=== PATIENT | female | born 1960 | race African-American/Black ===

== ENCOUNTER → 2018-04-03 14:56 | Outpatient (CLI) | payer OTHER, SELFPAY | PROVIDERS: Visit Provider Physician Assistant | DX: J02.9 Acute pharyngitis, unspecified (principal) | CPT/HCPCS: 87070 ==

== ENCOUNTER 2021-10-19 15:20 | Emergency (ER) | payer OTHER, SELFPAY ==
[2021-10-19 15:25] VITALS: BP 161/86; PULSE 59; RESP 18; TEMP 36.7; O2SAT 97
--- NOTE | 2021-10-19 15:31 | DI.RAD.S_ITS ---
PROCEDURE: XR CHEST 1V INDICATIONS: chest pain TECHNIQUE: One view of the chest was acquired. COMPARISON: [facility], CR, XR CHEST 2 VIEWS, 07/03/2019, 14:28. [facility], CR, CHEST 1 VIEW, 11/08/2016, 20:28. [facility], CR, CHEST 2 VIEW, 09/02/2017, 14:52. FINDINGS: Surgical changes and devices: None. Lungs and pleura: Lungs are clear. No pleural effusions or pneumothorax. Mediastinum: Mediastinal contours appear normal. Heart size is normal. Bones and chest wall: No suspicious bony lesions. Overlying soft tissues appear unremarkable. IMPRESSION: Portable chest within normal limits. Dictated by: Augustin Velasco M.D. on 10/19/2021 at 15:10 Approved by: Augustin Velasco M.D. on 10/19/2021 at 15:10
--- NOTE | 2021-10-19 15:51 | PC.NURSE ---
pt refused PIV. This Rn sanjay blood and removed the IV. pt states understanding there may need to be additional blood draws and a new IV placed. Provider notified
[2021-10-19 15:55] LABS: Add Manual Diff / Slide Review NO; Basophils Absolute Auto 0 /uL (0-100); Basophils Percent Auto 0.5 % (0-2); Eosinophils Absolute Auto 100 /uL (0-450); Eosinophils Percent Auto 1.9 % (2-4); Hematocrit 40.8 % (36-46); Hemoglobin 13.6 g/dL (12.0-16.0); Lymphocytes Absolute Auto 1400 /uL (1100-4500); Lymphocytes Percent Auto 19.6 % (25-40); Mean Corpuscular HGB Conc 33.4 % (30-36); Mean Corpuscular Hemoglobin 27.8 PG (26-34); Mean Corpuscular Volume 83.1 fL (80-100); Monocytes Absolute Auto 900 /uL (0-900); Monocytes Percent Auto 11.8 % (3-14); Neutrophils Absolute Auto 4800 /uL (1500-7000); Neutrophils Percent Auto 66.2 % (50-75); Platelet Count 233 X10^3/uL (150-400); Red Blood Cell Count 4.91 X10^6/uL (4.0-5.2); Red Cell Distribution Width 14.8 % (11.6-14.8); White Blood Cell Count 7.2 X10^3/uL (4.5-11.0)
[2021-10-19 16:01] LABS: Alanine Aminotransferase 14 IU/L (<35); Albumin 4.4 g/dL (3.5-5.0); Albumin Globulin Ratio 1.4 (1.0-2.8); Alkaline Phosphatase 61 U/L (38-126); Aspartate Aminotransferase 22 IU/L (14-36); Bilirubin Total 0.2 mg/dL (0.2-1.3); Blood Urea Nitrogen 23 mg/dL (7-17); Calcium 9.3 mg/dL (8.4-10.2); Carbon Dioxide 30 mmol/L (22-32); Chloride 106 mmol/L (98-107); Creatine Kinase 52 U/L (30-135); Estimated Glomerular Filt Rate > 60 mL/min (>60); Globulin 3.1 g/dL (1.7-4.1); Glucose 118 mg/dL (80-110); HEMOLYSIS < 15 (0-50); Lipase 114 U/L (23-300); Potassium 3.9 mmol/L (3.4-5.1); Sodium 142 mmol/L (137-145); Total Protein 7.5 g/dL (6.3-8.2)
[2021-10-19 16:13] LABS: Troponin I < 0.012 ng/mL (0.01-0.034)
--- NOTE | 2021-10-19 17:04 | ED.CHESTPAIN ---
HPI - Chest Pain General Chief Complaint: Chest Pain Stated Complaint: Sent for imaging, coughing Time Seen by Provider: 10/19/21 16:20 Source: patient Mode of arrival: Ambulatory Limitations: no limitations History of Present Illness HPI narrative: The patient has a history of a spontaneous pneumothorax in the , resolved without intervention. She presents with right anterior chest pain, similar to the discomfort she experienced with the pneumothorax. She has allergies. She is on no medications. She was aggressively clear her sinuses and coughing when the pain started. She has no chronic cough, no chronic lung disease. She is a nonsmoker. She has no asthma. She is rating chest pain without dyspnea. She has no hemoptysis. She has no history of cardiac disease. She has no fever chills or acute illness. She has no abdominal discomfort, no peripheral edema. Related Data Home Medications Medication Instructions Recorded Confirmed aspirin [[place] Aspirin] PO 11/29/18 11/29/18 cholecalciferol (vitamin D3) 25 1,000 unit PO DAILY 11/29/18 11/29/18 mcg (1,000 unit) capsule clotrimazole 1 % topical cream 1 applictn TOP BID PRN 11/29/18 11/29/18 diphenhydramine HCl [Benadryl PO PRN 11/29/18 11/29/18 Allergy] fluticasone propionate 50 1 spray NASAL DAILY PRN 11/29/18 11/29/18 mcg/actuation nasal spray,suspension hydrocortisone 1 % topical cream 1 applictn TOP BID PRN 11/29/18 11/29/18 (Anti-Itch (hydrocortisone)) ibuprofen 100 mg tablet (Advil) 200 mg PO QID PRN 11/29/18 11/29/18 oxymetazoline 0.05 % nasal spray 2 spray NASAL Q12H PRN 11/29/18 11/29/18 (Afrin (oxymetazoline)) pseudoephedrine HCl [Sudafed] PO PRN 11/29/18 11/29/18 triamcinolone acetonide 0.1 % 1 applictn TOP DAILY PRN 11/29/18 11/29/18 topical cream Previous Rx's Medication Instructions Recorded estradiol 0.5 mg tablet 0.5 mg PO DAILY #90 tab 01/26/19 progesterone micronized 100 mg 100 mg PO QAM 30 Days #90 cap 01/26/19 capsule (Prometrium) estradiol (Estrace) 0.3 gram VAG 2XW #42.5 gram 03/21/20 Allergies Allergy/AdvReac Type Severity Reaction Status Date / Time erythromycin base Allergy Unknown Verified 04/03/18 13:47 [ERYTHROMYCIN BASE] Review of Systems Review of Systems ROS Unobtainable: All systems reviewed & are unremarkable except as noted in HPI and below Patient History Medical History Chicken pox Hearing loss (~2018) Hematuria (~1977) Mumps Osteoarthritis (~2018) Pneumothorax (~1990) Shoulder problem (~2016) Vaginal atrophy (~2007) Surgical History Anesthesia History of section (~1994) History of tonsillectomy (~1965) S/P operative procedure on shoulder Family History Father Cancer Hypertension Mother Multiple myeloma Cancer Hypertension Kidney stones Brother Hypertension Sleep apnea Family/Other Mental health problem Bipolar disorder Anxiety Social History Smoking Status: Never smoker Smoking Status: Never smoker Exam Initial Vital Signs Initial Vital Signs: Vital Signs Temperature 98.1 F 10/19/21 15:25 Pulse Rate 59 L 10/19/21 15:25 Respiratory Rate 18 10/19/21 15:25 Blood Pressure 161/86 H 10/19/21 15:25 Pulse Oximetry 97 10/19/21 15:25 Const General: cooperative, healthy appearing and comfortable [facility] Head: normocephalic and atraumatic Face and sinus: normal facial exam and sinuses nontender Mouth: oropharynx normal Eyes General: Yes appearance normal, both eyes and all related structures Pupils: PERRL EOM: EOM intact bilaterally Neck Neck: supple, No tender and No JVD Chest Other: Reproducible tenderness in the right upper chest wall. No crepitus. No palpable deformity. Resp Auscultation: clear to auscultation bilaterally Cardio Rate: regular rate Rhythm: regular rhythm Heart Sounds: S1 normal, S2 normal, no click, no gallops and no murmurs GI Inspection: normal to inspection and non-distended Palpation: soft, No guarding and No mass Auscultation: normal bowel sounds Back/Spine/Pelvis Back: normal to inspection Skin General: no rashes or lesions noted Neuro General: patient alert, patient awake, patient oriented x3, no meningeal signs and no focal motor deficits Extrem General: normal to inspection, no pedal edema and no calf tenderness Psych Mental Status: mental status grossly normal Course Course Course Narrative: Cardiopulmonary evaluation is benign. EKG is normal. Chest x-ray is normal. Cardiac enzymes are normal. Exam is suggestive of a right chest wall strain, probably related to coughing and her allergies. Orders Ordered: ED Orders 10/19/21 15:31 XR chest 1V Stat Complete Blood Count AUTO DIFF Stat Comprehensive Metabolic Panel Stat Lipase Stat Magnesium Stat Troponin & CK Cardiac Panel Stat EKG-12 Lead Stat Vital Signs Vital signs: Vital Signs - 8 hr 10/19/21 15:25 Temperature 98.1 F Pulse Rate 59 L Respiratory Rate 18 Blood Pressure 161/86 H Pulse Oximetry 97 MDM - Chest Pain Lab Data Result diagrams: 10/19/21 15:31 10/19/21 15:31 Labs: Lab Results 10/19/21 10/19/21 Range/Units 15:31 15:31 WBC 7.2 (4.5-11.0) X10^3/uL RBC 4.91 (4.0-5.2) X10^6/uL Hgb 13.6 (12.0-16.0) g/dL Hct 40.8 (36-46) % MCV 83.1 (80-100) fL MCH 27.8 (26-34) PG MCHC 33.4 (30-36) % RDW 14.8 (11.6-14.8) % Plt Count 233 (150-400) X10^3/uL Neut % (Auto) 66.2 (50-75) % Lymph % (Auto) 19.6 L (25-40) % [place] % (Auto) 11.8 (3-14) % Eos % (Auto) 1.9 L (2-4) % Baso % (Auto) 0.5 (0-2) % Neut # (Auto) 4800 (8079-7092) /uL Lymph # (Auto) 1400 (2943-4002) /uL [place] # (Auto) 900 (0-900) /uL Eos # (Auto) 100 (0-450) /uL Baso # (Auto) 0 (0-100) /uL Sodium 142 (137-145) mmol/L Potassium 3.9 (3.4-5.1) mmol/L Chloride 106 (98-107) mmol/L Carbon Dioxide 30 (22-32) mmol/L BUN 23 H (7-17) mg/dL Creatinine 0.82 (0.52-1.04) mg/dL Estimated GFR > 60 (>60) mL/min BUN/Creatinine Ratio 28.0 H (6-22) Glucose 118 H (80-110) mg/dL Calcium 9.3 (8.4-10.2) mg/dL Magnesium 2.0 (1.6-2.3) mg/dL Total Bilirubin 0.2 (0.2-1.3) mg/dL AST 22 (14-36) IU/L ALT 14 (<35) IU/L Alkaline Phosphatase 61 (38-126) U/L Total Creatine Kinase 52 (30-135) U/L CK-MB (CK-2) TNP CK-MB (CK-2) Rel Index TNP Troponin I < 0.012 (0.01-0.034) ng/mL Total Protein 7.5 (6.3-8.2) g/dL Albumin 4.4 (3.5-5.0) g/dL Globulin 3.1 (1.7-4.1) g/dL Albumin/Globulin Ratio 1.4 (1.0-2.8) Lipase 114 (23-300) U/L Imaging Data Chest x-ray: Radiologist's Impression: Normal ECG Data Attestation: I personally reviewed and interpreted this ECG as follows: (Normal sinus rhythm rate 61 beats per minute. Normal intervals. No ectopy. No acute ST T wave changes.) Discharge Plan Departure Patient Disposition: Home Clinical Impression: Chest wall muscle strain Instructions: Muscle Strain Activity Restrictions/Additional Instructions: There is no evidence of pneumothorax. Tylenol or Advil as needed for pain. Do your best to avoid coughing. Return here as needed. Prescriptions: No Action progesterone micronized [Prometrium] 100 mg capsule 100 mg PO QAM 30 Days Qty: 90 1RF Hold Instructions: Pt wants to stop HRT Rx Instructions: Take 1 capsule by mouth daily for 30 days, off for 7 days; repeat cycle. estradiol 0.5 mg tablet 0.5 mg PO DAILY Qty: 90 1RF Hold Instructions: pt. wants to stop HRT as of 04/18/19 estradiol [Estrace] 0.01 % (0.1 mg/gram) cream 0.3 gram VAG 2XW Qty: 42.5 0RF Hold Instructions: Pt wants to stop HRT Rx Instructions: Place small amount at the vaginal opening 2 x weekly; call and schedule appointment before next refill aspirin PO 0RF oxymetazoline [Afrin (oxymetazoline)] 0.05 % spray,non-aerosol 2 spray NASAL Q12H PRN0RF ibuprofen [Advil] 100 mg tablet 200 mg PO QID PRN0RF fluticasone propionate 50 mcg/actuation spray,suspension 1 spray NASAL DAILY PRN0RF clotrimazole 1 % cream 1 applictn TOP BID PRN0RF triamcinolone acetonide 0.1 % cream 1 applictn TOP DAILY PRN0RF hydrocortisone [Anti-Itch (HC)] 1 % cream 1 applictn TOP BID PRN0RF cholecalciferol (vitamin D3) 1,000 unit capsule 1,000 unit PO DAILY 0RF pseudoephedrine HCl PO PRN0RF diphenhydramine HCl PO PRN0RF Referrals: Miscellaneous,Doctor, MD [Primary Care Provider] -
--- NOTE | 2021-10-19 17:34 | PC.NURSE ---
pt declines discharge information packet. verbal instructions provided by RN
== END 2021-10-19 17:35 | disposition home or self-care (01) ==
PROVIDERS: Emergency Provider Emergency Medicine
DX: S29.011A Strain of muscle and tendon of front wall of thorax, initial encounter (principal)
CPT/HCPCS: 36415; 71045; 80053; 82550; 83690; 83735; 84484; 85025; 93005; 99283

== ENCOUNTER 2023-01-25 17:19 | Emergency (ER) | payer OTHER, SELFPAY ==
[2023-01-25 17:36] VITALS: BP 152/86; PULSE 64; RESP 17; TEMP 36.6; O2SAT 98; BMI 18.0
--- NOTE | 2023-01-25 17:43 | DI.RAD.S_ITS ---
PROCEDURE: XR CHEST 1V INDICATIONS: pain with breaths TECHNIQUE: One view of the chest was acquired. COMPARISON: [facility], CR, XR CHEST 2 VIEWS, 07/03/2019, 14:28. [facility], CR, XR CHEST 1V, 10/19/2021, 15:43. FINDINGS: Surgical changes and devices: None. Lungs and pleura: Lungs are clear. No pleural effusions or pneumothorax. Mediastinum: Mediastinal contours appear normal. Heart size is normal. Bones and chest wall: No suspicious bony lesions. Age-appropriate bony degenerative changes are seen. Overlying soft tissues appear unremarkable. IMPRESSION: Normal portable chest, without infiltrates or pneumothorax. Dictated by: Augustin Velasco M.D. on 01/25/2023 at 17:08 Approved by: Augustin Velasco M.D. on 01/25/2023 at 17:09
[2023-01-25 18:01] LABS: Add Manual Diff / Slide Review NO; Basophils Absolute Auto 0 /uL (0-100); Basophils Percent Auto 0.7 % (0-2); Eosinophils Absolute Auto 200 /uL (0-450); Eosinophils Percent Auto 2.5 % (2-4); Hematocrit 42.3 % (36-46); Hemoglobin 14.3 g/dL (12.0-16.0); Lymphocytes Absolute Auto 1500 /uL (1100-4500); Lymphocytes Percent Auto 23.1 % (25-40); Mean Corpuscular HGB Conc 33.7 % (30-36); Mean Corpuscular Hemoglobin 27.9 PG (26-34); Mean Corpuscular Volume 82.8 fL (80-100); Monocytes Absolute Auto 800 /uL (0-900); Monocytes Percent Auto 12.4 % (3-14); Neutrophils Absolute Auto 3900 /uL (1500-7000); Neutrophils Percent Auto 61.3 % (50-75); Platelet Count 247 X10^3/uL (150-400); Red Blood Cell Count 5.11 X10^6/uL (4.0-5.2); Red Cell Distribution Width 14.5 % (11.6-14.8); White Blood Cell Count 6.4 X10^3/uL (4.5-11.0)
[2023-01-25 18:11] LABS: Creatine Kinase 42 U/L (30-135)
[2023-01-25 18:13] LABS: Alanine Aminotransferase 20 IU/L (<35); Albumin 4.4 g/dL (3.5-5.0); Albumin Globulin Ratio 1.4 (1.0-2.8); Alkaline Phosphatase 65 U/L (38-126); Aspartate Aminotransferase 25 IU/L (14-36); BUN Creatinine Ratio 24.4 (6-22); Bilirubin Total 0.5 mg/dL (0.2-1.3); Blood Urea Nitrogen 19 mg/dL (7-17); Calcium 9.5 mg/dL (8.4-10.2); Carbon Dioxide 30 mmol/L (22-32); Chloride 102 mmol/L (98-107); Estimated Glomerular Filt Rate > 60 mL/min (>60); Globulin 3.2 g/dL (1.7-4.1); Glucose 134 mg/dL (80-110); HEMOLYSIS 20 (0-50); Lipase 162 U/L (23-300); Potassium 3.5 mmol/L (3.4-5.1); Sodium 139 mmol/L (137-145); Total Protein 7.6 g/dL (6.3-8.2)
[2023-01-25 18:24] LABS: Troponin I < 0.012 ng/mL (0.01-0.034)
--- NOTE | 2023-01-25 20:32 | ED.ABDPAIN ---
HPI - Abdominal Pain General Chief Complaint: Abdominal Pain Stated Complaint: gastrointestinal issues/pain under ribcage Time Seen by Provider: 01/25/23 20:32 Source: patient Mode of arrival: Ambulatory History of Present Illness HPI narrative: Patient 62-year-old female presents today with left-sided upper quadrant pain. She reports it goes underneath her ribs it has been ongoing for a number of weeks. She reports that every time she eats or drinks the pain gets worse. She is able to stick her fingers of under her ribs and palpated and make it worse as well. It is not any worse today but she is going on a trip next week and wanted to get checked. She denies any chest pain or shortness of breath no palpitations. Denies any fever or chills no nausea or vomiting. She is actually supposed to see a GI doctor in a couple weeks for another problem. She reports that when she bends down she feels like the bile goes up into her chest. She has been taking Tums without significant relief. Related Data Home Medications Medication Instructions Recorded Confirmed cholecalciferol (vitamin D3) 25 1,000 unit PO DAILY 11/29/18 01/25/23 mcg (1,000 unit) capsule fluticasone propionate 50 1 spray intranasal DAILY PRN 11/29/18 11/29/18 mcg/actuation nasal spray,suspension hydrocortisone 1 % topical cream 1 applictn topical BID PRN 11/29/18 11/29/18 (Anti-Itch (hydrocortisone)) ibuprofen 100 mg tablet (Advil) 200 mg PO QID PRN 11/29/18 11/29/18 oxymetazoline 0.05 % nasal spray 2 spray intranasal Q12H PRN 11/29/18 11/29/18 (Afrin (oxymetazoline)) pseudoephedrine HCl [Sudafed] PO PRN 11/29/18 11/29/18 triamcinolone acetonide 0.1 % 1 applictn topical DAILY PRN 11/29/18 11/29/18 topical cream Previous Rx's Medication Instructions Recorded estradiol 0.5 mg tablet 0.5 mg PO DAILY #90 tabs 01/26/19 progesterone micronized 100 mg 100 mg PO QAM 30 days #90 caps 01/26/19 capsule (Prometrium) estradiol 0.01% (0.1 mg/gram) 0.3 gram vaginal 2XW #42.5 grams 03/21/20 vaginal cream (Estrace) omeprazole 20 mg capsule,delayed 20 mg PO DAILY #30 caps 01/25/23 release Allergies Allergy/AdvReac Type Severity Reaction Status Date / Time erythromycin base Allergy Unknown Verified 01/25/23 17:39 [ERYTHROMYCIN BASE] Review of Systems Review of Systems ROS Unobtainable: All systems reviewed & are unremarkable except as noted in HPI and below Patient History Medical History Chicken pox Hearing loss (~2018) Hematuria (~1977) Mumps Osteoarthritis (~2018) Pneumothorax (~1990) Shoulder problem (~2016) Vaginal atrophy (~2007) Surgical History Anesthesia History of section (~1994) History of tonsillectomy (~1965) S/P operative procedure on shoulder Family History Father Cancer Hypertension Mother Multiple myeloma Cancer Hypertension Kidney stones Brother Hypertension Sleep apnea Family/Other Mental health problem Bipolar disorder Anxiety Social History Smoking Status: Never smoker Smoking Status: Never smoker alcohol intake frequency: other Substance Use Type: does not use Exam Initial Vital Signs Initial Vital Signs: Vital Signs Temperature 98 F 01/25/23 17:36 Pulse Rate 64 01/25/23 17:36 Respiratory Rate 17 01/25/23 17:36 Blood Pressure 152/86 H 01/25/23 17:36 Pulse Oximetry 98 01/25/23 17:36 Oxygen Delivery Method Room Air 01/25/23 17:36 GENERAL: Becca 62-year-old female and in no acute distress. HEENT: Head atraumatic,EOMI, pupils reactive, face symmetric, moist mucous membranes CARDIOVASCULAR: Regular rate and rhythm without murmurs, rubs or gallops. RESPIRATORY: Breath sounds equal bilaterally, no wheezes rales or rhonchi. ABDOMEN: Soft, nontender. Normoactive bowel sounds all 4 quadrants. No guarding or rebound. EXTREMITIES: Normal range of motion, no clubbing or edema. Neurovascularly intact NEUROLOGICAL: Alert and oriented x4 SKIN: Warm, dry, no laceration, no petechiae, no rashes or lesions. Scores HEART Score Heart Score history: Slightly Suspicious Heart Score EKG: Normal Heart Score Age: 45-64 years old Heart Score risk factors: No known risk factors Heart Score troponin: < or = to normal limit Heart Score Total: 1 Course Orders Ordered: Discontinued Medications Ondansetron HCl (Ondansetron 4 Mg Odt) 4 mg PO NOW PRN PRN Reason: Nausea And Vomiting Ondansetron HCl (Ondansetron 4 Mg/2 Ml Inj) 4 mg IV NOW PRN PRN Reason: Nausea And Vomiting Vital Signs Vital signs: Vital Signs - 8 hr 01/25/23 21:23 Pulse Rate 53 L Respiratory Rate 16 Blood Pressure 161/77 H Pulse Oximetry 97 Oxygen Delivery Method Room Air MDM - Abdominal Pain Lab Data 01/25/23 17:57 01/25/23 17:57 Labs: Lab Results 01/25/23 01/25/23 01/25/23 Range/Units 17:57 17:57 17:57 WBC 6.4 (4.5-11.0) X10^3/uL RBC 5.11 (4.0-5.2) X10^6/uL Hgb 14.3 (12.0-16.0) g/dL Hct 42.3 (36-46) % MCV 82.8 (80-100) fL MCH 27.9 (26-34) PG MCHC 33.7 (30-36) % RDW 14.5 (11.6-14.8) % Plt Count 247 (150-400) X10^3/uL Neut % (Auto) 61.3 (50-75) % Lymph % (Auto) 23.1 L (25-40) % [place] % (Auto) 12.4 (3-14) % Eos % (Auto) 2.5 (2-4) % Baso % (Auto) 0.7 (0-2) % Neut # (Auto) 3900 (4542-8615) /uL Lymph # (Auto) 1500 (0295-5499) /uL [place] # (Auto) 800 (0-900) /uL Eos # (Auto) 200 (0-450) /uL Baso # (Auto) 0 (0-100) /uL Sodium 139 (137-145) mmol/L Potassium 3.5 (3.4-5.1) mmol/L Chloride 102 (98-107) mmol/L Carbon Dioxide 30 (22-32) mmol/L BUN 19 H (7-17) mg/dL Creatinine 0.78 (0.52-1.04) mg/dL Estimated GFR > 60 (>60) mL/min BUN/Creatinine Ratio 24.4 H (6-22) Glucose 134 H (80-110) mg/dL Calcium 9.5 (8.4-10.2) mg/dL Total Bilirubin 0.5 (0.2-1.3) mg/dL AST 25 (14-36) IU/L ALT 20 (<35) IU/L Alkaline Phosphatase 65 (38-126) U/L Total Creatine Kinase 42 (30-135) U/L Troponin I < 0.012 (0.01-0.034) ng/mL Total Protein 7.6 (6.3-8.2) g/dL Albumin 4.4 (3.5-5.0) g/dL Globulin 3.2 (1.7-4.1) g/dL Albumin/Globulin Ratio 1.4 (1.0-2.8) Lipase 162 (23-300) U/L Imaging Data Chest x-ray: Radiologist's Impression: PROCEDURE:? XR CHEST 1V ? INDICATIONS:? pain with breaths ? TECHNIQUE:? One view of the chest was acquired.? ? COMPARISON:? [facility], CR, XR CHEST 2 VIEWS, 07/03/2019, 14:28.? [facility], CR, XR CHEST 1V, 10/19/2021, 15:43. ? FINDINGS:? ? Surgical changes and devices:? None.? ? Lungs and pleura:? Lungs are clear.? No pleural effusions or pneumothorax.? ? Mediastinum:? Mediastinal contours appear normal.? Heart size is normal.? ? Bones and chest wall:? No suspicious bony lesions.? Age-appropriate bony degenerative changes are seen. ? Overlying soft tissues appear unremarkable.? ? ? IMPRESSION:? Normal portable chest, without infiltrates or pneumothorax. ? ? Dictated by: Augustin Velasco M.D. on 01/25/2023 at 17:08 ECG Data Interpretation: Normal sinus rhythm rate 61 KS interval 134 QRS [address] changes no T-wave inversions similar to previous EKGs [facility] Narrative Medical decision making narrative: Patient is 62-year-old female presenting today with left upper quadrant pain worse with food ongoing or weeks reproducible with palpation. She is a low risk heart score this is very atypical for cardiac more likely an ulcer. Blood work is overall reassuring it has been reviewed no elevated troponin. She is nontender in her right upper quadrant no need for imaging at this time. EKG shows no changes chest x-ray is negative. More gastric ulcer rather than cardiac in nature. She is not tender no right upper quadrant highly unlikely to be a cholecystitis or cholelithiasis. She is no flank pain sign of UTI. You should feel burning sensation when she leans over into her chest at times. Recommended [id number] omeprazole. At this time she overall appears well been ongoing for numerous weeks no change today. No need for any further workup or evaluation. Discharge Plan Departure Patient Disposition: Home Clinical Impression: Gastric ulcer Instructions: DI for Gastric Ulcer Activity Restrictions/Additional Instructions: *You have been diagnosed with probable gastric ulcer *What to do: You may require an EGD *Continue to take medications as directed Omeprazole 20 mg once a day--> SAFEWAY *Follow up with your primary care provider in 2-3 days or call [phone] *Return to ER if you should have increasing pain chest pain shortness of breath palpitations or any new, worsening or concerning symptoms Prescriptions: New omeprazole 20 mg capsule,delayed release(DR/EC) 20 mg PO DAILY Qty: 30 0RF No Action progesterone micronized [Prometrium] 100 mg capsule 100 mg PO QAM 30 Days Qty: 90 1RF Hold Instructions: Pt wants to stop HRT Rx Instructions: Take 1 capsule by mouth daily for 30 days, off for 7 days; repeat cycle. estradiol 0.5 mg tablet 0.5 mg PO DAILY Qty: 90 1RF Hold Instructions: pt. wants to stop HRT as of 04/18/19 estradiol [Estrace] 0.01 % (0.1 mg/gram) cream 0.3 gram VAG 2XW Qty: 42.5 0RF Hold Instructions: Pt wants to stop HRT Rx Instructions: Place small amount at the vaginal opening 2 x weekly; call and schedule appointment before next refill oxymetazoline [Afrin (oxymetazoline)] 0.05 % spray,non-aerosol 2 spray NASAL Q12H PRN ibuprofen [Advil] 100 mg tablet 200 mg PO QID PRN fluticasone propionate 50 mcg/actuation spray,suspension 1 spray NASAL DAILY PRN triamcinolone acetonide 0.1 % cream 1 applictn TOP DAILY PRN hydrocortisone [Anti-Itch (HC)] 1 % cream 1 applictn TOP BID PRN cholecalciferol (vitamin D3) 1,000 unit capsule 1,000 unit PO DAILY pseudoephedrine HCl PO PRN Referrals: Miscellaneous,Doctor, MD [Primary Care Provider] - Stand Alone Forms: Patient Portal/API
[2023-01-25 21:23] VITALS: BP 161/77; PULSE 53; RESP 16; O2SAT 97
== END 2023-01-25 21:23 | disposition home or self-care (01) ==
PROVIDERS: Emergency Medicine; Emergency Provider Emergency Medicine
DX: K25.9 Gastric ulcer, unspecified as acute or chronic, without hemorrhage or perforation (principal); R10.9 Unspecified abdominal pain
CPT/HCPCS: 36415; 71045; 80053; 82550; 83690; 84484; 85025; 93005; 93010; 99283; 99284

== ENCOUNTER 2023-05-23 12:33 | Emergency (ER) | payer OTHER, SELFPAY ==
[2023-05-23 12:41] VITALS: BP 193/94; PULSE 69; RESP 16; TEMP 36.9; O2SAT 98; BMI 18.0
--- NOTE | 2023-05-23 12:54 | ED_ITS ---
HPI - Head Injury <Aurelio Hall PA-C - Last Filed: 05/23/23 12:59> General Chief complaint: Head Injury Stated complaint: hit head t-1 Time Seen by Provider: 05/23/23 12:42 History of Present Illness HPI Narrative: 63-year-old female presents to the ED status post a head injury sustained 24 hours ago. Patient states that she accidentally hit the top of her head against a wooden beam when she straightened up against it. No loss of consciousness. Patient endorses, mild nausea, fatigue. Patient denies vision changes, vomiting, dizziness, loss of balance, lightheadedness, chest pain, shortness of breath. Patient is not on blood thinners. Related Data Home Medications Medication Instructions Recorded Confirmed cholecalciferol (vitamin D3) 25 1,000 unit PO DAILY 11/29/18 01/25/23 mcg (1,000 unit) capsule fluticasone propionate 50 1 spray intranasal DAILY PRN 11/29/18 11/29/18 mcg/actuation nasal spray,suspension hydrocortisone 1 % topical cream 1 applictn topical BID PRN 11/29/18 11/29/18 (Anti-Itch (hydrocortisone)) ibuprofen 100 mg tablet (Advil) 200 mg PO QID PRN 11/29/18 11/29/18 oxymetazoline 0.05 % nasal spray 2 spray intranasal Q12H PRN 11/29/18 11/29/18 (Afrin (oxymetazoline)) pseudoephedrine HCl [Sudafed] PO PRN 11/29/18 11/29/18 triamcinolone acetonide 0.1 % 1 applictn topical DAILY PRN 11/29/18 11/29/18 topical cream Previous Rx's Medication Instructions Recorded estradiol 0.5 mg tablet 0.5 mg PO DAILY #90 tabs 01/26/19 progesterone micronized 100 mg 100 mg PO QAM 30 days #90 caps 01/26/19 capsule (Prometrium) estradiol 0.01% (0.1 mg/gram) 0.3 gram vaginal 2XW #42.5 grams 03/21/20 vaginal cream (Estrace) omeprazole 20 mg capsule,delayed 20 mg PO DAILY #30 caps 01/25/23 release Allergies Allergy/AdvReac Type Severity Reaction Status Date / Time erythromycin base Allergy Unknown Verified 01/25/23 17:39 [ERYTHROMYCIN BASE] Review of Systems <Aurelio Hall PA-C - Last Filed: 05/23/23 12:59> Constitutional Constitutional: Denies chills, Denies fatigue, Denies fever(s), Denies frequent falls, Reports headache(s), Denies lethargy and Denies weakness Eyes Eyes: Denies change in vision, Denies eye discharge, Denies irritation and Denies loss of vision ENT Ears, Nose, Mouth, and Throat: Denies change in voice, Denies dizziness, Reports headache(s), Denies neck pain, Denies sore throat and Denies throat swelling Cardiovascular Cardiovascular: Denies chest pain, Denies irregular heart rhythm, Denies lightheadedness, Denies palpitations, Denies dyspnea, Denies dyspnea on exertion and Denies orthopnea Respiratory Respiratory: Denies cough, Denies dyspnea, Denies dyspnea on exertion and Denies wheezing Gastrointestinal Gastrointestinal: Denies abdominal pain, Denies change in bowel habits, Denies diarrhea, Reports nausea and Denies vomiting Musculoskeletal Musculoskeletal: Denies neck pain and Denies numbness Integumentary/Breasts Skin/Breast: Denies pruritus, Denies erythema, Denies rash and Denies wounds Neurologic Neurologic: Denies behavioral changes, Denies confusion, Denies dizziness, Denies frequent falls, Reports headache(s), Denies loss of vision, Denies numbness and Denies weakness Psychiatric Psychiatric: Denies anxiety, Denies behavioral changes, Denies confusion, Denies depression, Denies homicidal ideation and Denies suicidal ideation Endocrine Endocrine: Denies fatigue, Denies flushing and Denies palpitations Hematologic/Lymphatic Hematologic/Lymphatic: Denies easy bruising Allergic/Immunologic Allergic/Immunologic: Denies urticaria, Denies throat swelling and Denies wheezing Patient History <Aurelio Hall PA-C - Last Filed: 05/23/23 12:59> Medical History Osteoarthritis (~2018) Pneumothorax (~1990) Shoulder problem (~2016) Mumps Chicken pox Hearing loss (~2018) Vaginal atrophy (~2007) Hematuria (~1977) Surgical History Anesthesia S/P operative procedure on shoulder History of section (~1994) History of tonsillectomy (~1965) Family History Father Cancer Hypertension Mother Multiple myeloma Cancer Hypertension Kidney stones Brother Hypertension Sleep apnea Family/Other Mental health problem Bipolar disorder Anxiety Social History Smoking Status: Never smoker Smoking Status: Never smoker alcohol intake frequency: other Substance Use Type: does not use Exam <Aurelio Hall PA-C - Last Filed: 05/23/23 12:59> Narrative Exam Narrative: Const General:?cooperative, healthy appearing and comfortable HENMT Head:?normal to inspection Ears:?hearing grossly normal bilaterally Nose:?external nose normal Face and sinus:?normal facial exam and sinuses nontender Mouth:?oral mucosae normal Throat:?posterior oropharynx normal Eyes General:?appearance normal, both eyes and all related structures Neck Neck:?normal visual inspection and no lymphadenopathy noted Resp Effort & Inspection:?normal respiratory effort Auscultation:?clear to auscultation bilaterally Cardio Rate:?regular rate Rhythm:?regular rhythm Neuro General:?patient alert, patient awake and patient oriented x3; PERRLA; CN 1 through 12 intact bilaterally; gait is normal. Initial Vital Signs Initial Vital Signs: Vital Signs Temperature 98.4 F 05/23/23 12:41 Pulse Rate 69 05/23/23 12:41 Respiratory Rate 16 05/23/23 12:41 Blood Pressure 193/94 H 05/23/23 12:41 Pulse Oximetry 98 05/23/23 12:41 Oxygen Delivery Method Room Air 05/23/23 12:41 <Arnold Mena MD - Last Filed: 06/02/23 10:07> Initial Vital Signs Initial Vital Signs: Vital Signs Temperature 98.4 F 05/23/23 12:41 Pulse Rate 69 05/23/23 12:41 Respiratory Rate 16 05/23/23 12:41 Blood Pressure 193/94 H 05/23/23 12:41 Pulse Oximetry 98 05/23/23 12:41 Oxygen Delivery Method Room Air 05/23/23 12:41 Course <Aurelio Hall PA-C - Last Filed: 05/23/23 12:59> Vital Signs Vital signs: Vital Signs - 8 hr 05/23/23 12:41 Temperature 98.4 F Pulse Rate 69 Respiratory Rate 16 Blood Pressure 193/94 H Pulse Oximetry 98 Oxygen Delivery Method Room Air <Arnold Mena MD - Last Filed: 06/02/23 10:07> Vital Signs Vital signs: Vital Signs - 8 hr 05/23/23 12:41 Temperature 98.4 F Pulse Rate 69 Respiratory Rate 16 Blood Pressure 193/94 H Pulse Oximetry 98 Oxygen Delivery Method Room Air MDM - Head Injury <Aurelio Hall PA-C - Last Filed: 05/23/23 12:59> MDM Narrative Medical decision making narrative: 63-year-old female presents to the ED status post a head injury sustained 24 hours ago. Given that the injury was 24 hours ago, physical exam not concerning for hematoma or skull depressions or other abnormalities, patient is also neurologically intact, patient's symptoms are most consistent with a postconcussion syndrome. Imaging not indicated at this time. Discussed finding s with patient, signs and symptoms of concussion discussed with patient. Recommend Tylenol, ibuprofen for pain. Recommend follow-up with PCP as soon as possible. ED return precautions were discussed with patient. Patient verbalized understanding. Medical records reviewed: Yes Discharge Plan Departure Patient Disposition: Home Clinical Impression: Head injury Qualifiers: Encounter type: initial encounter Qualified Code(s): S09.90XA - Unspecified injury of head, initial encounter Instructions: Concussion, DI for Closed Head Injury Activity Restrictions/Additional Instructions: You were evaluated in the ED today for a head injury. Your physical exam and history are reassuring. It appears that you might have some postconcussive symptoms from the head injury. These symptoms can range from increased sleepiness, fatigue, tiredness, headache, nausea, depression and irritability. We advise physical and cognitive rest until your symptoms resolve. Cognitive rest includes refraining from using electronic screen such as cell phones, computers, television signs, also includes reading books. This is in order to give your brain a chance to rest and recuperate. You may take Tylenol and ibuprofen for aches and pains. Return to the ED if you have worsening symptoms, persistent vomiting, lethargy. Please do follow-up with your PCP as soon as possible so they can follow your symptoms to resolution. Prescriptions: No Action progesterone micronized [Prometrium] 100 mg capsule 100 mg PO QAM 30 Days Qty: 90 1RF Hold Instructions: Pt wants to stop HRT Rx Instructions: Take 1 capsule by mouth daily for 30 days, off for 7 days; repeat cycle. estradiol 0.5 mg tablet 0.5 mg PO DAILY Qty: 90 1RF Hold Instructions: pt. wants to stop HRT as of 04/18/19 estradiol [Estrace] 0.01 % (0.1 mg/gram) cream 0.3 gram VAG 2XW Qty: 42.5 0RF Hold Instructions: Pt wants to stop HRT Rx Instructions: Place small amount at the vaginal opening 2 x weekly; call and schedule appointment before next refill oxymetazoline [Afrin (oxymetazoline)] 0.05 % spray,non-aerosol 2 spray NASAL Q12H PRN ibuprofen [Advil] 100 mg tablet 200 mg PO QID PRN fluticasone propionate 50 mcg/actuation spray,suspension 1 spray NASAL DAILY PRN triamcinolone acetonide 0.1 % cream 1 applictn TOP DAILY PRN hydrocortisone [Anti-Itch (HC)] 1 % cream 1 applictn TOP BID PRN cholecalciferol (vitamin D3) 1,000 unit capsule 1,000 unit PO DAILY pseudoephedrine HCl PO PRN omeprazole 20 mg capsule,delayed release(DR/EC) 20 mg PO DAILY Qty: 30 0RF Referrals: Miscellaneous,[facility] [Primary Care Provider] - Stand Alone Forms: Patient Portal/API ED Sign-out <Arnold Mena MD - Last Filed: 06/02/23 10:07> Cosign ED Attending Cosignature Attestation: I was immediately available in the department for consultation. This documentation has been reviewed and I agree with assessment and plan. Supervised by Arnold Mena MD
== END 2023-05-23 12:57 | disposition home or self-care (01) ==
PROVIDERS: Emergency Provider Student in an Organized Health Care Education/Training Program
DX: S09.90XA Unspecified injury of head, initial encounter (principal); W22.09XA Striking against other stationary object, initial encounter
CPT/HCPCS: 99281; 99282

== ENCOUNTER 2023-07-15 20:50 | Emergency (ER) | payer OTHER, SELFPAY ==
[2023-07-15 20:59] VITALS: BP 168/81; PULSE 60; RESP 16; TEMP 37.1; O2SAT 98; BMI 18.1
[2023-07-15 22:19] VITALS: PULSE 75
--- NOTE | 2023-07-15 22:19 | ED_ITS ---
HPI - Extremity Problem General Chief complaint: Extremity Problem,Nontraumatic Stated complaint: sudden pain in rt leg Time Seen by Provider: 07/15/23 21:22 Source: patient Mode of arrival: Ambulatory History of Present Illness HPI Narrative: 63-year-old female presents for evaluation of pain in her outer right lower leg. Patient states that she was doing tasks around the house when she noticed 2 small areas of swelling on her outer right lower leg. They seemed to coalesce into 1 larger bump and she became concerned. A margin has been drawn around the area and she was here today for evaluation. Related Data Home Medications Medication Instructions Recorded Confirmed cholecalciferol (vitamin D3) 25 1,000 unit PO DAILY 11/29/18 01/25/23 mcg (1,000 unit) capsule fluticasone propionate 50 1 spray intranasal DAILY PRN 11/29/18 11/29/18 mcg/actuation nasal spray,suspension hydrocortisone 1 % topical cream 1 applictn topical BID PRN 11/29/18 11/29/18 (Anti-Itch (hydrocortisone)) ibuprofen 100 mg tablet (Advil) 200 mg PO QID PRN 11/29/18 11/29/18 oxymetazoline 0.05 % nasal spray 2 spray intranasal Q12H PRN 11/29/18 11/29/18 (Afrin (oxymetazoline)) pseudoephedrine HCl [Sudafed] PO PRN 11/29/18 11/29/18 triamcinolone acetonide 0.1 % 1 applictn topical DAILY PRN 11/29/18 11/29/18 topical cream Previous Rx's Medication Instructions Recorded estradiol 0.5 mg tablet 0.5 mg PO DAILY #90 tabs 01/26/19 progesterone micronized 100 mg 100 mg PO QAM 30 days #90 caps 01/26/19 capsule (Prometrium) estradiol 0.01% (0.1 mg/gram) 0.3 gram vaginal 2XW #42.5 grams 03/21/20 vaginal cream (Estrace) omeprazole 20 mg capsule,delayed 20 mg PO DAILY #30 caps 01/25/23 release Allergies Allergy/AdvReac Type Severity Reaction Status Date / Time erythromycin base Allergy Unknown Verified 01/25/23 17:39 [ERYTHROMYCIN BASE] procaine [From Novocain] Allergy Palpitation Verified 07/15/23 20:59 s Review of Systems Review of Systems Narrative: Negative except as noted above Patient History Medical History Osteoarthritis (~2018) Pneumothorax (~1990) Shoulder problem (~2016) Mumps Chicken pox Hearing loss (~2018) Vaginal atrophy (~2007) Hematuria (~1977) Surgical History Anesthesia S/P operative procedure on shoulder History of section (~1994) History of tonsillectomy (~1965) Family History Father Cancer Hypertension Mother Multiple myeloma Cancer Hypertension Kidney stones Brother Hypertension Sleep apnea Family/Other Mental health problem Bipolar disorder Anxiety Social History Smoking Status: Never smoker Smoking Status: Never smoker alcohol intake frequency: other Substance Use Type: does not use Exam Initial Vital Signs Initial Vital Signs: Vital Signs Temperature 98.7 F 07/15/23 20:59 Pulse Rate 60 07/15/23 20:59 Respiratory Rate 16 07/15/23 20:59 Blood Pressure 168/81 H 07/15/23 20:59 Pulse Oximetry 98 07/15/23 20:59 Oxygen Delivery Method Room Air 07/15/23 20:59 Const: Awake, alert, no acute distress, nontoxic appearing MSK: Atraumatic, full range of motion, pulses equal Skin: 2x3 cm area of bruising noted to lateral proximal tib/fib region. Neuro: AO x3, CN II-XII grossly intact, moves all extremities Psych: affect normal, mood normal, not suicidal, not homicidal Course Vital Signs Vital signs: Vital Signs - 8 hr 07/15/23 20:59 07/15/23 22:19 07/15/23 22:20 Temperature 98.7 F 98.2 F Pulse Rate 60 60 Pulse Rate [Right Dorsalis Pedis] 75 Respiratory Rate 16 18 Blood Pressure 168/81 H 140/81 Pulse Oximetry 98 97 Oxygen Delivery Method Room Air Room Air MDM - Extremity (Nontraumatic) MDM Narrative Medical decision making narrative: Well-appearing patient with small area of swelling to the lateral aspect of her distal right leg. Appears to be a contusion. No warmth or fluctuance to sug gest abscess or infection. Patient does state that she bruises easily and may have bumped something without realizing it at the time. A margin has been drawn around the area, she was advised to watch for changes. Ice and compression advised for symptom control as well as limb elevation whenever possible. ED return precautions discussed at bedside. Patient expressed understanding of the plan and is in agreement at this time. All questions answered at the time of discharge. Discharge Plan Departure Patient Disposition: Home Clinical Impression: Contusion of leg, right Instructions: DI for Contusion Prescriptions: No Action progesterone micronized [Prometrium] 100 mg capsule 100 mg PO QAM 30 Days Qty: 90 1RF Hold Instructions: Pt wants to stop HRT Rx Instructions: Take 1 capsule by mouth daily for 30 days, off for 7 days; repeat cycle. estradiol 0.5 mg tablet 0.5 mg PO DAILY Qty: 90 1RF Hold Instructions: pt. wants to stop HRT as of 04/18/19 estradiol [Estrace] 0.01 % (0.1 mg/gram) cream 0.3 gram VAG 2XW Qty: 42.5 0RF Hold Instructions: Pt wants to stop HRT Rx Instructions: Place small amount at the vaginal opening 2 x weekly; call and schedule appointment before next refill oxymetazoline [Afrin (oxymetazoline)] 0.05 % spray,non-aerosol 2 spray NASAL Q12H PRN ibuprofen [Advil] 100 mg tablet 200 mg PO QID PRN fluticasone propionate 50 mcg/actuation spray,suspension 1 spray NASAL DAILY PRN triamcinolone acetonide 0.1 % cream 1 applictn TOP DAILY PRN hydrocortisone [Anti-Itch (HC)] 1 % cream 1 applictn TOP BID PRN cholecalciferol (vitamin D3) 1,000 unit capsule 1,000 unit PO DAILY pseudoephedrine HCl PO PRN omeprazole 20 mg capsule,delayed release(DR/EC) 20 mg PO DAILY Qty: 30 0RF Referrals: Lloyd Collins MD [Primary Care Provider] - Stand Alone Forms: Patient Portal/API
[2023-07-15 22:20] VITALS: BP 140/81; PULSE 60; RESP 18; TEMP 36.8; O2SAT 97
== END 2023-07-15 22:30 | disposition home or self-care (01) ==
PROVIDERS: Emergency Provider Emergency Medicine; PCP Internal Medicine
DX: S80.11XA Contusion of right lower leg, initial encounter (principal)
CPT/HCPCS: 99282

== ENCOUNTER → 2024-07-08 07:19 | Outpatient (CLI) | payer OTHER, SELFPAY | PROVIDERS: PCP Internal Medicine; Referring Provider Registered Nurse; Visit Provider Registered Nurse | DX: R30.0 Dysuria (principal); N94.9 Unspecified condition associated with female genital organs and menstrual cycle | CPT/HCPCS: 87086; 87210 ==